=== PATIENT | female | born 1950 | race Hispanic/Latino ===

== ENCOUNTER 2019-03-04 06:12 | Day surgery (SDC) | payer OTHER ==
[~2019-03-04] VITALS: Ht 147.3 cm; Wt 108.9 kg
[~2019-03-04 06:12] MED LIST: SODIUM CHLORIDE 0.9% 1000ML 1,000 ML IV ONE
[2019-03-04 07:22] VITALS: BP 156/91
[2019-03-04] MEDS ORDERED: MELO-108 PO (07:47)
[2019-03-04] MEDS ORDERED: PANT40TA25 PO (07:47)
[2019-03-04] MEDS ORDERED: FLUO40CA7 PO (07:47)
[2019-03-04] MEDS ORDERED: FOLI1TAB15 PO (07:47)
[2019-03-04] MEDS ORDERED: DILT120T PO (07:47)
[2019-03-04] MEDS ORDERED: SULFAD500 PO (07:47)
[2019-03-04] MEDS ORDERED: ALPR-412 PO (07:47)
[2019-03-04] MEDS ORDERED: ASPI-555 PO (07:47)
[2019-03-04] MEDS ORDERED: MELA5CAP PO (07:47)
[2019-03-04] MEDS ORDERED: GABA-531 PO (07:47)
[2019-03-04] MEDS ORDERED: HYDR-4068 PO (07:47)
[2019-03-04] MEDS ORDERED: HYDR25SU38 RC (07:47)
[2019-03-04] MEDS ORDERED: PROPOFOL 10 MG/ML 20ML VIAL IV ONE ×2 (08:47)
[2019-03-04 09:21] VITALS: BP 136/77
[2019-03-04 09:26] VITALS: BP 142/74
[2019-03-04 09:28] VITALS: BP 181/99
== END 2019-03-04 09:45 | disposition home or self-care (01) ==
LOC: DAH 06:12
PROVIDERS: ATTEND Internal Medicine
DX: Z12.11 Encounter for screening for malignant neoplasm of colon (principal); K29.50 Unspecified chronic gastritis without bleeding; D12.2 Benign neoplasm of ascending colon; D12.3 Benign neoplasm of transverse colon; D12.5 Benign neoplasm of sigmoid colon; D12.8 Benign neoplasm of rectum; Z86.010 Personal history of colon polyps; I10 Essential (primary) hypertension; F41.9 Anxiety disorder, unspecified; M19.90 Unspecified osteoarthritis, unspecified site; G47.30 Sleep apnea, unspecified; K44.9 Diaphragmatic hernia without obstruction or gangrene; K31.89 Other diseases of stomach and duodenum; K22.8 Other specified diseases of esophagus
CPT/HCPCS: 43239; 45380; 45381; 45385; 88305; 93005; A4606; J2704 ×2; J7030